=== PATIENT | female | born 1960 | race Caucasian/White ===

== ENCOUNTER → 2023-06-03 07:11 | Outpatient (REF) | payer OTHER, SELFPAY | LOC: DHCBC HW 07:11 | PROVIDERS: ATTENDING PHYSICIAN Internal Medicine; FAMILY PHYSICIAN Family Medicine | DX: I48.0 Paroxysmal atrial fibrillation (principal); I10 Essential (primary) hypertension | CPT/HCPCS: 93306 ==

== ENCOUNTER → 2023-07-30 09:12 | Outpatient (REF) | payer OTHER, SELFPAY | LOC: WDC 09:12 | PROVIDERS: ATTENDING PHYSICIAN Surgery | DX: N64.52 Nipple discharge (principal); Z91.89 Other specified personal risk factors, not elsewhere classified | CPT/HCPCS: 76642; 77061; 77065 ==

== ENCOUNTER → 2023-08-13 16:24 | Outpatient (REF) | payer OTHER, SELFPAY | LOC: MRI 3T 16:24 | PROVIDERS: ATTENDING PHYSICIAN Surgery | DX: N64.52 Nipple discharge (principal); Z91.89 Other specified personal risk factors, not elsewhere classified | CPT/HCPCS: 77049; A9585 ==

== ENCOUNTER → 2024-01-29 06:41 | Outpatient (REF) | payer OTHER, SELFPAY | LOC: WDC 06:41 | PROVIDERS: ATTENDING PHYSICIAN Obstetrics & Gynecology Gynecology | DX: Z12.31 Encounter for screening mammogram for malignant neoplasm of breast (principal) | CPT/HCPCS: 77063; 77067 ==

== ENCOUNTER → 2025-01-05 17:37 | Outpatient (REF) | payer BC, SELFPAY | LOC: MRI 3T 17:37 | PROVIDERS: ATTENDING PHYSICIAN Surgery; FAMILY PHYSICIAN Family Medicine | DX: N64.52 Nipple discharge (principal); Z80.3 Family history of malignant neoplasm of breast | CPT/HCPCS: 77049; A9585 ==

== ENCOUNTER → 2025-01-26 14:14 | Outpatient (REF) | payer BC, SELFPAY | LOC: WDC 14:14 | PROVIDERS: ATTENDING PHYSICIAN Surgery; FAMILY PHYSICIAN Family Medicine | DX: R92.8 Other abnormal and inconclusive findings on diagnostic imaging of breast (principal) | CPT/HCPCS: 76642 ==

== ENCOUNTER → 2025-02-09 10:37 | Outpatient (REF) | payer BC, SELFPAY | LOC: WDC 10:37 | PROVIDERS: ATTENDING PHYSICIAN Surgery | DX: N63.12 Unspecified lump in the right breast, upper inner quadrant (principal) | CPT/HCPCS: 19083; 88305; 88341; 88342; 88360; A4648 ==

== ENCOUNTER → 2025-03-14 09:21 | Outpatient (REF) | payer BC, SELFPAY | LOC: WDC 09:21 | PROVIDERS: ATTENDING PHYSICIAN Surgery | DX: D24.1 Benign neoplasm of right breast (principal); R89.6 Abnormal cytological findings in specimens from other organs, systems and tissues | CPT/HCPCS: 19285; A4648 ==

== ENCOUNTER 2025-03-15 06:28 | Day surgery (SDC) | payer BC, SELFPAY ==
[2025-03-03 08:51] LABS: Hematocrit 40.3 % (37.0-47.0); Hemoglobin 13.3 g/dL (12.0-16.0); Mean Corp Hgb Conc. 33.0 g/dL (33.0-37.0); Mean Corpuscular Volume 85.4 fL (81.0-99.0); Platelet Count 284 10^3/uL (130-400); Red Cell Dist. Width 13.3 % (11.5-14.5)
[2025-03-03 09:57] LABS: ALT (SGPT) 15 U/L (0-35); AST (SGOT) 18 U/L (14-36); Albumin 4.5 g/dl (3.5-5.0); Alkaline Phosphatase 57 U/L (38-126); Blood Urea Nitrogen 16 mg/dl (7-17); Calcium 9.2 mg/dl (8.4-10.2); Carbon Dioxide 30 mmol/L (22-30); Chloride 104 mmol/L (98-107); Glucose 93 mg/dl (70-99); Potassium 4.6 mmol/L (3.5-5.1); Sodium 138 mmol/L (135-145); Total Protein 7.6 g/dl (6.3-8.2); eGFR > 60.00
[2025-03-03 10:31] LABS: Prealbumin (Transthyretin) 18.6 mg/dl (17.6-36.0)
[2025-03-03 10:44] LABS: Vitamin D, 25-OH*** 44.7 ng/mL (30-80)
[2025-03-03 13:10] VITALS: BMI 31.9
[2025-03-15] VITALS (7 sets, daily range): BP systolic 12–137; BP diastolic 47–66; BMI 31.9
[2025-03-15] MEDS: TYLENOL 1000 MG PO (09:33)
[2025-03-15] MEDS: LOVENOX 40 MG SC (09:33)
[2025-03-15] MEDS: VANCOCIN 530 MG IV (09:34)
[2025-03-15] MEDS: NORMOSOL-R/PLASMALYTE-A 1000 IV (09:48)
--- NOTE | 2025-03-15 11:15 | W.IMMPOSTOP ---
Surgical Immed Post Op Note
-
Primary Surgeon: Skip
Assisting Surgeon: None
Pre-op Diagnosis: right breast papillary lesion with atypia
Post-op Diagnosis: same
Procedure Performed: Right localized lumpectomy
Anesthesia Type: TIVA
Specimen / Cultures: right lumpectomy and margins
Estimated Blood Loss: 6cc
Complications: none
Operative Findings: clip and reflector in specimen
--- NOTE | 2025-03-15 11:17 | OR.RPT ---
Operative Report
Operative Report
Date of procedure: 03/15/2025
Surgeon: Skip
Preoperative diagnosis: Right breast atypical papillary lesion
Postoperative diagnosis: Same
Procedure: Right localized lumpectomy
The patient is a 65-year-old female who developed an interval change on screening mammography leading to biopsy showing a papillary lesion with atypia. She presents for localized lumpectomy. On the day prior to the procedure the patient presented
to the [facility] where Christy reflector was placed at the appropriate area. On the day of the procedure she presented to the same-day surgical services unit. She verified site and procedure and was prepped. DVT and antibiotic
prophylaxis were provided and she was transferred to the operating room. In the supine position intravenous sedation was delivered. The right breast was prepped and draped in the usual sterile fashion. All team members performed an appropriate
timeout procedure.
All tissues were anesthetized with 1% lidocaine plain. A Christy signal was detected using the probe and a medial circumareolar incision was made sharply with the blade. Skin flaps were elevated with the cautery and a wide lumpectomy was performed
using the direction of the Christy probe and signal. Time out of body for the lumpectomy was noted and the specimen was oriented for the pathologist. Specimen radiography confirmed the presence of clip and reflector within it. Additional margins
were harvested for permanent analysis from the posterior, medial, superior, lateral, inferior, and anterior dimensions. These were oriented as well. Hemostasis was verified. Hemoclips were placed in the resection cavity and Marcaine 0.5% plain
was instilled into all tissues. The wound was closed using simple interrupted 2-0 Polysorb on deep and intermediate tissue. Subcutaneous tissue was closed with simple interrupted 2-0 Polysorb or 3-0 Polysorb. Skin was closed with a running
subcuticular 4-0 Monocryl and some external simple Monocryl sutures for extra support. Surgical glue and sterile compressive dressing were applied. All sponge needle and instrument counts were correct and the patient was transferred to same-day
surgical services unit for recovery
([id number])
== END 2025-03-15 14:30 | disposition home or self-care (01) ==
LOC: SDS 06:28
PROVIDERS: ATTENDING PHYSICIAN Surgery; FAMILY PHYSICIAN Family Medicine
DX: D24.1 Benign neoplasm of right breast (principal); Z80.3 Family history of malignant neoplasm of breast
CPT/HCPCS: 19301; 76098; 80053; 82306; 84134; 85027; 88305; 88307; 88341; 88342; 88360; 93005